=== PATIENT | male | born 1990 | race Caucasian/White ===

== ENCOUNTER 2021-04-11 09:23 | Emergency (ER) | payer BC, OTHER ==
--- NOTE | 2021-04-11 09:46 | EDM.PDOC ---
ED HPI GENERAL MEDICAL PROBLEM - General Chief Complaint: Laceration Stated Complaint: R HAND PINKY LAC Time Seen by Provider: 04/11/21 09:46 Source of Information: Reports: Patient History Limitations: Reports: No Limitations - History of Present Illness INITIAL COMMENTS - FREE TEXT/NARRATIVE: 30-year-old male presents to the ED with a 1 cm laceration volar aspect of right fifth finger. 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 His tetanus diphtheria and pertussis vaccine is up-to-date. Onset: Today, Sudden Onset Date: 04/11/21 Onset Time: 09:00 Duration: Minutes: Location: Reports: Upper Extremity, Right (Laceration volar aspect right fifth finger distal aspect) Quality: Reports: Ache Severity: Mild Improves with: Reports: None Worsens with: Reports: None Context: Reports: Other. Denies: Activity, Exercise, Lifting, Sick Contact, Trauma Associated Symptoms: Reports: No Other Symptoms (Laceration by sharp piece of metal) Treatments DATABASE PROGRAMMER: Reports: Other (see below) (None.) Right Finger-Little Pain Score (Numeric/FACES): 6 - Related Data Allergies Allergy/AdvReac Type Severity Reaction Status Date / Time No Known Allergies Allergy Verified 04/11/21 09:32 Home Meds: Home Meds Multivitamin 1 each PO DAILY 04/11/21 [History] Past Medical History Cardiovascular History: Reports: Other (See Below) Other Cardiovascular History: "Bicuspid Aortic Valve." - Past Surgical History GI Surgical History: Reports: Appendectomy Social & Family History - Tobacco Use Tobacco Use Status *Q: Never Tobacco User - Caffeine Use Caffeine Use: Reports: Soda - Recreational Drug Use Recreational Drug Use: No - Living Situation & Occupation Living situation: Reports: Occupation: Employed ED ROS GENERAL - Review of Systems Review Of Systems: See Below Constitutional: Denies: Fever, Chills, Malaise, Weakness, Fatigue, Decreased Appetite, Weight Loss HEENT: Reports: Glasses Respiratory: Reports: No Symptoms Cardiovascular: Reports: No Symptoms, Other (Known bicuspid aortic valve.) Endocrine: Reports: No Symptoms GI/Abdominal: Reports: No Symptoms : Reports: No Symptoms Musculoskeletal: Reports: No Symptoms Skin: Reports: No Symptoms Neurological: Reports: No Symptoms Psychiatric: Reports: No Symptoms Hematologic/Lymphatic: Reports: No Symptoms Immunologic: Reports: No Symptoms ED EXAM, SKIN/RASH Exam: See Below Exam Limited By: No Limitations General Appearance: Alert, WD/WN, No Apparent Distress, Other (Temperature is 36.6 degrees. Heart rate 70 and sinus. Respiratory 16 with O2 sats 100% room air. BP mildly elevated 136 105.) Extremities: Other (Examination was limited to the laceration distal aspect volar right fifth finger. He has normal sensation normal flexion no evidence of tendon laceration. The laceration is actually distal to tendon insertion. Wound is approximately 1.2 cm in length.) ED SKIN PROCEDURES - Laceration/Wound Repair Right Distal Ventral Digit - 5th (Baby) Appearance: Subcutaneous, Clean Distal NVT: Neuro & Vascular Intact Anesthetic Type: Local Local Anesthesia - Lidocaine (Xylocaine): 1% Plain Local Anesthetic Volume: 2cc Skin Prep: Saline Closed with: Sutures Lac/Wound length In cm: 1.2 Suture Size: 4-0 # of Sutures: 5 Suture Type: Nylon, Interrupted, Simple Course - Vital Signs Last Recorded V/S: Last Vital Signs Temp 36.6 C 04/11/21 09:29 Pulse 70 04/11/21 09:29 Resp 16 04/11/21 09:29 BP 136/105 H 04/11/21 09:29 Pulse Ox 100 04/11/21 09:29 - Orders/Labs/Meds Meds: Medications Discontinued Medications Generic Name Dose Route Start Last Admin Trade Name Familia PRN Reason Stop Dose Admin Lidocaine HCl 10 ml 04/11/21 10:09 04/11/21 10:25 Lidocaine 1% 10 Ml Mdv INJECT 04/11/21 10:10 10 ml ONETIME ONE Administration - Radiology Interpretation Free Text/Narrative:: 30-year-old male presents to the ED with an acute laceration to the volar aspect of his distal right fifth finger. Cut it on very sharp piece of metal at work this morning. Wound is approximately 1.2 cm in length. It will require suture repair. Neurovascular function is normal. No tendon laceration. Tetanus diphtheria and pertussis vaccine is up-to-date. - Re-Assessments/Exams Free Text/Narrative Re-Assessment/Exam: 04/11/21 10:42 1.2 cm laceration volar aspect of the right fifth finger sutured under local anesthetic using lidocaine 1%. 5 sutures were placed using 4-0 Ethil on to close the wound. Patient will cleanse the wound at home daily and sutures will need to be removed in 10 days time. Departure - Departure Time of Disposition: 10:36 Disposition: Home, Self-Care 01 Condition: Fair Clinical Impression: Laceration of finger Qualifiers: Encounter type: initial encounter Finger: little finger Damage to nail status: without damage Foreign body presence: without foreign body Laterality: right Qualified Code(s): S61.216A - Laceration without foreign body of right little finger without damage to nail, initial encounter - Discharge Information *PRESCRIPTION DRUG MONITORING PROGRAM REVIEWED*: Not Applicable *COPY OF PRESCRIPTION DRUG MONITORING REPORT IN PATIENT CARTER: Not Applicable Instructions: Laceration Care, Adult, Sutures, Chantelle, or Adhesive Wound Closure, [id number] Referrals: Helen Wade MD [Primary Care Provider] - Forms: ED Department Discharge Additional Instructions: Evaluation in the emergency room this morning in regards to a laceration across the volar aspect of your distal right fifth finger. Laceration is proxy 1.2 cm in length. Wound was cleansed and then sutured under local anesthetic times 5 sutures. Treatment at home is to daily cleanse the wound with soap and water. Showering is okay. Wound should not be soaked underwater however until the sutures are removed. Apply topical antibiotic such as bacitracin or Polysporin to the wound once daily and cover with a bandage to keep clean. Sutures will need to be removed in 10 days time. Return to medical care sooner if any signs of infection develop such as increased redness, swelling or obvious pus. Sepsis Event Note (ED) - Evaluation Sepsis Screening Result: No Definite Risk - Focused Exam Vital Signs: Vital Signs Temp Pulse Resp BP Pulse Ox 04/11/21 09:29 36.6 C 70 16 136/105 H 100
[2021-04-11] MEDS ORDERED: Lidocaine 1% 10 ML MDV INJECT ONE (10:09)
== END 2021-04-11 10:50 | disposition home or self-care (01) ==
LOC: JD.ED 09:23
DX: S61.216A Laceration without foreign body of right little finger without damage to nail, initial encounter (principal); W26.8XXA Contact with other sharp object(s), not elsewhere classified, initial encounter; Y99.0 Civilian activity done for income or pay
CPT/HCPCS: 12001; 99282-25

== ENCOUNTER 2025-07-11 08:08 | Emergency (ER) | payer OTHER ==
[2025-07-11] MEDS: Lidocaine 1% with EPINEPHrine 1:100,000 20 ML MDV INJECT ONE (08:39)
[2025-07-11] MEDS: Diphtheria,Pertussis(Acell),Tetanus Vaccine 0.5 ML Syringe IM ONE (09:05)
== END 2025-07-11 09:14 | disposition home or self-care (01) ==
LOC: JD.ED 08:08
DX: S61.412A Laceration without foreign body of left hand, initial encounter (principal); Z23 Encounter for immunization; Z88.6 Allergy status to analgesic agent; Z88.5 Allergy status to narcotic agent; W45.8XXA Other foreign body or object entering through skin, initial encounter
CPT/HCPCS: 12001; 90471; 90715; 99282; J2004